=== PATIENT | female | born 1970 | race Caucasian/White ===

== ENCOUNTER 2020-10-03 10:07 | Day surgery (SDC) | payer OTHER ==
[2020-10-03] MEDS: Lactated Ringers 1,000 ML IV SCH (07:50)
--- NOTE | 2020-10-03 07:51 | HP ---
HISTORY OF PRESENT ILLNESS: This is a patient who presents for colonoscopy for screening. She denies any upper GI symptoms. She has had occasional diarrhea with certain foods, has occasional lower abdominal cramps prior to a bowel movement but this is very minimal and she states not significant. She has no significant abdominal pain. No significant lower GI symptoms, no bleeding, no fever, no chills, no chest pain, no shortness of breath. She did have a maternal grandfather who had colon cancer. Her mother had uterine cancer and she also has heart disease and diabetes in her family. She also has an extended family history on her mom's side with breast cancer and cervical cancer and these were an aunt. PAST MEDICAL/SURGICAL HISTORY: Includes migraines, hyperlipidemia, tubal ligation, uterine ablation, tonsillectomy. MEDICATIONS: Atorvastatin, venlafaxine, propranolol, Rizatriptan, promethazine. ALLERGIES: SULFA. SOCIAL HISTORY: No alcohol use. Positive tobacco use. PHYSICAL EXAMINATION: GENERAL: No acute distress. CVS: Regular rate and rhythm. PULMONARY: Nonlabored. ABDOMEN: Soft, nontender, nondistended. EXTREMITIES: Normal. LAB DATA AND TESTS: EKG and chest x-ray all have been reviewed preoperatively and are all satisfactory for proceeding with colonoscopy. DIAGNOSIS: Due for screening colonoscopy. PLAN: Colonoscopy at [facility] per patient request. Due to her family history in her extended family members with cancer, I did also refer her to a genetic counselor for evaluation there.
[~2020-10-03 10:07] MED LIST: Lactated Ringers 1,000 ML IV ONE
[2020-10-03] MEDS ORDERED: Lactated Ringers 1,000 ML IV ONE ×2 (10:15→12:18)
[2020-10-03 10:30] VITALS: O2SAT 100
[2020-10-03] MEDS ORDERED: DIPRIVAN 200 MG/20 ML IV ONE ×3 (10:56→12:31)
[2020-10-03] MEDS ORDERED: Versed 2 MG/2 ML Injection ONE (11:49)
[2020-10-03 13:41] VITALS: BP 134/78; PULSE 77
--- NOTE | 2020-10-05 09:31 | OP ---
PROCEDURE DATE/TIME: 10/03/2020 1152 PREOPERATIVE DIAGNOSIS: Screening. POSTOPERATIVE DIAGNOSIS: Benign appearing anal tag, mild hemorrhoidal disease and colon polyps. PROCEDURE: Colonoscopy with hot snare splenic flexure, descending colon polyp and hot forceps polypectomy sigmoid colon polyp. PROCEDURE PERFORMED BY: Saritha Young M.D. COMPLICATIONS: None. ESTIMATED BLOOD LOSS: Minimal. ANESTHESIA: MAC. SPECIMENS: 1) Splenic flexure colon polyp.2) Descending colon polyp. 3) Sigmoid colon polyp. HISTORY: This is a 49 year-old female who presents for screening colonoscopy. Risks, benefits, alternatives, H&P and consent were all reviewed with her and confirmed. She does also have a family history of colon cancer as well as other cancers in her family and she was also referred for genetic testing as well. The patient was seen preoperatively. All remaining questions answered, everything verified. DESCRIPTION OF PROCEDURE: She was then laid in left lateral decubitus position. A complete time out was performed. First a rectal exam was done and an inspection. She does have benign appearing anal tag. I do not see any concerning mass here. She does also have mild internal and external hemorrhoidal disease. The scope was then inserted. We gently advanced this to the level of the cecum. The appendiceal orifice and the ileocecal valve were visualized. The immediate terminal ileum looked normal. We then carefully withdrew the scope taking a circumferential view. Her prep was satisfactory for evaluation of polyps. I found three polyps these measured approximately 5 to 7 mm in size. The larger of the lesions were in the splenic flexure and the descending colon. These were taken in entirety with a hot snare. These were semi-pedunculated and appeared to be benign on gross visualization. They were removed in entirety. The sites were hemostatic after removal. There was another polyp approximately 5 mm semi-pedunculated at the angle of the sigmoid colon and this was removed with hot forceps. I was not able to remove this with a hot snare due to the angulation here. With two bites of the hot forceps we were able to remove the polyp in entirety. No polyp tissue remaining. The site looked hemostatic and then the scope was able to be completely removed. There were no other findings in the rectum other than the hemorrhoid tissue as previously dictated. The patient tolerated the procedure very well. There were no immediate complications. He is going to follow up with me as an outpatient and we will plan for another colonoscopy in three years. I will also plan to do a rectal exam on her in six months to follow her anal tag and hemorrhoid disease.
== END 2020-10-03 13:42 | disposition home or self-care (01) ==
LOC: SDC 10:07
PROVIDERS: ATTEND Surgery
DX: Z12.11 Encounter for screening for malignant neoplasm of colon (principal); Z80.0 Family history of malignant neoplasm of digestive organs; Z79.899 Other long term (current) drug therapy; K64.4 Residual hemorrhoidal skin tags; K64.8 Other hemorrhoids; D12.4 Benign neoplasm of descending colon; D12.5 Benign neoplasm of sigmoid colon; D12.3 Benign neoplasm of transverse colon
CPT/HCPCS: J2250; J2704

== ENCOUNTER 2022-09-17 10:49 | Emergency (ER) | payer OTHER ==
[2022-09-17] MEDS ORDERED: Zofran 4 MG/2 ML VIAL IV ONE ×2 (11:27→14:24)
[2022-09-17] MEDS ORDERED: MORPHINE SULFATE 4 MG INJ IV ONE (11:27)
[2022-09-17] MEDS ORDERED: MORPHINE SULFATE 4 MG INJ ONE (11:27)
[2022-09-17] MEDS ORDERED: Sodium Chloride 0.9% 1000 ML 1,000 ML IV STA (11:27)
[2022-09-17] MEDS ORDERED: Zofran 4 MG/2 ML VIAL ONE ×2 (11:27→14:24)
[2022-09-17] MEDS ORDERED: Sodium Chloride 0.9% 1000 ML 1,000 ML ONE (11:27)
[2022-09-17 11:39] LABS: Absolute Neutrophil Ct (ANC) 6.52 x10^3/uL (1.4-6.9); BASOPHIL % 0.5 % (0.0-0.4); Basophil (Absolute #) 0.06 x10^3/uL (0-0.4); Eosinophil % 1.3 % (0.00-5.0); Eosinophil (Absolute #) 0.15 x10^3/uL (0-0.5); Hematocrit 48.5 % (35-47); Hemoglobin 15.9 g/dL (12.0-16.0); IMMATURE GRAN # 0.03 x10^3u/L (0.00-0.03); IMMATURE GRAN % 0.3 % (0.00-0.4); Lymphocyte (Absolute #) 4.12 x10^3/uL (1.0-4.6); Lymphocytes % 35.7 % (24.0-44.0); Mean Cell Volume 89.8 fL (78-100); Mean Corpuscular Hemoglobin 29.4 pg (26-32); Mean Corpuscular Hgb Concent. 32.8 g/dL (32-36); Mean Platelet Volume 10.1 fL (7.5-11.0); Monocyte (Absolute #) 0.66 x10^3/uL (0.0-1.3); Monocytes % 5.7 % (0.0-12.0); Neutrophil % 56.5 % (36.0-66.0); Platelet Count 315 x10^3/uL (150-450); Red Cell Distribution Width 13.5 % (11.5-14.0); White Blood Count 11.5 x10^3/uL (4.0-10.5)
[2022-09-17 11:48] LABS: Appearance Clear (Clear); Bacteria Few /HPF (None Seen); Bilirubin Negative (Negative); Blood Negative (Negative); Epithelial Cells Few /HPF (None Seen); Glucose, Urine Negative (Negative); Ketones Negative (Negative); Leukocyte Esterase Negative (Negative); Nitrite Negative (Negative); Ph 5.5 (4.6-8.0); Protein,Urine Dip Negative (Negative); RBC 0-2 /HPF (0-5); Specific Gravity 1.015 (1.005-1.030); Urobilinogen 0.2 mg/dL (0.2); WBC 0-2 /HPF (0-5)
[2022-09-17 11:49] LABS: ADD URINE CULTURE? NO (NO)
[2022-09-17 11:52] LABS: ALBUMIN 4.4 g/dL (3.5-5.0); ALKALINE PHOSPHATASE 105 U/L (38-126); ANION GAP 14.6 MEQ/L (5-15); BLOOD UREA NITROGEN 12 mg/dL (7-17); CHLORIDE 100 mmol/L (98-107); Calcium 9.4 mg/dL (8.4-10.2); Carbon Dioxide 25 mmol/L (22-30); EST GLOMERULAR FILTRATION RATE > 60.0 ML/MIN; Glucose 89 mg/dL (74-106); LIPASE 466 U/L (23-300); Potassium 4.3 mmol/L (3.5-5.1); SGOT/AST 24 U/L (14-36); SGPT/ALT 18 U/L (0-35); SODIUM 136 mmol/L (137-145); Total Protein 8.1 g/dL (6.3-8.2)
--- NOTE | 2022-09-17 13:31 | XRAY ---
CLINICAL HISTORY:Right lower quadrant/ flank pain. COMPARISON:None. TECHNIQUES:Contiguous multi-slice CT examinations of the abdomen and pelvis were acquired in the axial plane with coronal and sagittal without intravenous contrast. CTDI2.74. DLP:140.38. FINDINGS: Liver- normal unenhanced liver. The gall bladder is regular in contour and attenuation. No evidence of calculi. The pancreas is normal in shape and contour. Peripancreatic planes appear normal. No evidence of calcification or pancreatic duct dilatation is seen. The spleen is normal in contour and attenuation. Adrenals are normal. Both kidneys are normal in size, shape and attenuation. No calculi / No hydronephrosis. Both ureters are unremarkable. Stomach and bowel loops are normal. The appendix is normal. No periappendiceal fat stranding identified. The urinary bladder is normal. The uterus is anteverted and grossly unremarkable. Rectum and perirectal fat planes are normal. Vascular calcification seen, more obvious in the distal aorta and its bifurcation. Bone window setting shows Normal bones. Multiple variable sized calcified areas are seen in the subcutaneous tissue over the bilateral gluteal muscles (Gluteal injection site granulomas.). A tiny diffusely calcified nodule is seen in the posterior basal segment of the left lower lung lobe measuring 5.2 mm representing benign findinggranuloma. IMPRESSION: 1. No acute intra-abdominal or pelvic pathology is noted as visualized on the non-contrast CT study. 2. Normal kidneys. No obstructing calculus was identified. 3. Normal appendix. Electronically Signed by: Thad Vyas MD. (09/17/2022 12:27:52 [employer])
[2022-09-17 13:42] VITALS: PULSE 84; O2SAT 97
[2022-09-17 14:05] VITALS: BP 139/107
[2022-09-17] MEDS ORDERED: HYDROCODONE-ACETAMIN 10-325 MG PO STA (14:09)
[2022-09-17] MEDS ORDERED: NORCO 5/325 MG PO ONE (14:10)
[2022-09-17] MEDS ORDERED: HYDROCODONE-ACETAMIN 10-325 MG ONE (14:13)
[2022-09-17] MEDS ORDERED: NORCO 5/325 MG ONE (14:13)
--- NOTE | 2022-09-17 14:21 | ERPHSYRPT ---
- History of Present Illness Time Seen by Provider: 09/17/22 10:54 Historian: patient Exam Limitations: no limitations Patient Subjective Stated Complaint: Abdominal pain Triage Nursing Assessment: Patient ambulated back to ED and transferred self to bed. Patient A+O X 3. Patient's skin pink, warm and dry. Patient complains of right sided abdominal/flank pain that started saturday night that keeps getting worse. Patient complains of pain 8/10. Patient complains of nausea, but vomiting or diarrhea. Abdomen soft and round with BS X 4. Physician History: 51 years old female presented in the ER with chief complaint of right flank/right lower quadrant pain moderate to severe, sharp with radiation to the back, aggravated with palpation on its with associated nausea but no vomiting. Denies any diarrhea or constipation. No urinary complaints. No history of kidney stones. Timing/Duration: day(s) (2), gradual onset, worse Activities at Onset: rest Quality: sharpness Abdominal Pain Onset Location: RLQ, flank Pain Radiation: back Severity of Pain-Max: severe Severity of Pain-Current: severe Modifying Factors: Worsens With: movement, palpation Associated Symptoms: back, nausea, No vomiting Previous symptoms: no prior history Allergies/Adverse Reactions: Sulfa (Sulfonamide Antibiotics) Allergy (Verified 09/17/22 11:00) Home Medications: Promethazine HCl 25 mg Amp [Phenergan 25 MG INJ] 25 mg IJ UD PRN 10/31/11 [History] Propranolol HCl 60 mg PO DAILY 09/26/20 [History] Venlafaxine HCl [Venlafaxine HCl ER] 225 mg PO DAILY 09/26/20 [History] Hx Tetanus, Diphtheria Vaccination/Date Given: Yes Hx Influenza Vaccination/Date Given: No Hx Pneumococcal Vaccination/Date Given: No Immunizations Up to Date: Yes Travel Risk - International Travel Have you traveled outside of the country in past 3 weeks: No - Coronavirus Screening Are you exhibiting any of the following symptoms?: No Close contact with a COVID-19 positive Pt in past 14-21 Days: No - Vaccine Status Have you recieved a Covid-19 vaccination: No - Review of Systems Constitutional: No Symptoms Eyes: No Symptoms Ears, Nose, & Throat: No Symptoms Respiratory: No Symptoms Cardiac: No Symptoms Abdominal/Gastrointestinal: Abdominal Pain, Nausea Genitourinary Symptoms: No Symptoms Musculoskeletal: Back Pain Skin: No Symptoms Neurological: No Symptoms Psychological: No Symptoms Endocrine: No Symptoms Hematologic/Lymphatic: No Symptoms Immunological/Allergic: No Symptoms - Past Medical History Pertinent Past Medical History: Yes Neurological History: Migraines ENT History: No Pertinent History Cardiac History: High Cholesterol Respiratory History: Other Endocrine Medical History: Other Musculoskeletal History: Fibromyalgia GI Medical History: No Pertinent History History: No Pertinent History Psycho-Social History: No Pertinent History Female Reproductive Disorders: No Pertinent History Other Medical History: RECENTLY FOUND NODULE ON THYROID AND HAVING SCAN ON THE AND BLOOD WORK WAS ORDERED. RECENTLY DAUGHTER HAD COVID AND PATIENT WAS ILL BUT COVID TEST NEGATIVE X 2. PATIENT IS NOT VACCINATED. - Past Surgical History Past Surgical History: No Neuro Surgical History: No Pertinent History Cardiac: No Pertinent History Respiratory: No Pertinent History Gastrointestinal: No Pertinent History Genitourinary: No Pertinent History Musculoskeletal: No Pertinent History Female Surgical History: Tubal Ligation, Other Other Surgical History: uterine ablation - Social History Smoking Status: Current every day smoker How long have you smoked: 1984 Exposure to second hand smoke: Yes Drug Use: none Patient Lives Alone: No - Nursing Vital Signs Nursing Vital Signs: Initial Vital Signs Temperature 97.9 F 09/17/22 11:02 Pulse Rate 110 H 09/17/22 11:02 Respiratory Rate 18 09/17/22 11:02 Blood Pressure 151/112 09/17/22 11:02 O2 Sat by Pulse Oximetry 100 09/17/22 11:02 Pain Scale Pain Intensity 10 - Physical Exam General Appearance: no apparent distress, alert, anxiety Eye Exam: PERRL/EOMI Ears, Nose, Throat Exam: normal ENT inspection, pharynx normal Neck Exam: normal inspection, non-tender, supple, full range of motion Respiratory Exam: normal breath sounds, lungs clear Cardiovascular Exam: regular rate/rhythm, normal heart sounds Gastrointestinal/Abdomen Exam: soft, normal bowel sounds, tenderness (Right lower quadrant/flank) Back Exam: normal inspection, normal range of motion, No CVA tenderness Extremity Exam: normal inspection, normal range of motion Neurologic Exam: alert, oriented x 3, cooperative Skin Exam: normal color SpO2 Interpretation: normal SpO2: 97 O2 Delivery: Room Air Ordered Tests: Active Orders 24 hr Category Date Time Status IV Insertion STAT Care 09/17/22 11:27 Active NPO (ED) STAT Care 09/17/22 11:27 Active ABDOMEN AND PELVIS W/0 CONTRAS [CT] Stat Exams 09/17/22 12:13 Completed CBC W DIFF Stat Lab 09/17/22 11:30 Completed CMP Stat Lab 09/17/22 11:30 Completed LIPASE Stat Lab 09/17/22 11:30 Completed Lactic Acid Stat Lab 09/17/22 11:36 Completed UA W/RFX UR CULTURE Stat Lab 09/17/22 11:31 Completed Medication Summary Discontinued Medications Generic Name Dose Route Start Last Admin Trade Name Julianne PRN Reason Stop Dose Admin Hydrocodone Bitart/Acetaminophen 1 tablet 09/17/22 14:09 09/17/22 14:14 Hydrocodone/Acetamin 10-325 Mg Tablet PO 09/17/22 14:10 1 tablet ONCE STA Administration Hydrocodone Bitart/Acetaminophen 2 tab 09/17/22 14:10 09/17/22 14:14 Hydrocodone/Apap 5/325 1 Tab Tablet PO 09/17/22 14:11 2 tab SENT HOME W/ PATIENT ONE Administration Hydrocodone Bitart/Acetaminophen Confirm 09/17/22 14:13 Hydrocodone/Apap 5/325 1 Tab Tablet Administered 09/17/22 14:14 Dose 2 tab .ROUTE .STK-MED ONE Hydrocodone Bitart/Acetaminophen Confirm 09/17/22 14:13 Hydrocodone/Acetamin 10-325 Mg Tablet Administered 09/17/22 14:14 Dose 1 tablet .ROUTE .STK-MED ONE Sodium Chloride 1,000 mls @ 999 mls/hr 09/17/22 11:27 09/17/22 12:45 Sodium Chloride 0.9% 1000 Ml IV 09/17/22 12:27 Infused .Q1H1M STA Infusion Sodium Chloride Confirm 09/17/22 11:27 Sodium Chloride 0.9% 1000 Ml Administered 09/17/22 11:28 Dose 1,000 mls @ ud .ROUTE .STK-MED ONE Morphine Sulfate 4 mg 09/17/22 11:27 09/17/22 11:35 Morphine Sulfate 4 Mg/Ml Injection IV 09/17/22 11:28 4 mg STAT ONE Administration Morphine Sulfate Confirm 09/17/22 11:27 Morphine Sulfate 4 Mg/Ml Injection Administered 09/17/22 11:28 Dose 4 mg .ROUTE .STK-MED ONE Ondansetron HCl 4 mg 09/17/22 11:27 09/17/22 11:34 Ondansetron Hcl 4 Mg/2 Ml Vial IV 09/17/22 11:28 4 mg STAT ONE Administration Ondansetron HCl Confirm 09/17/22 11:27 Ondansetron Hcl 4 Mg/2 Ml Vial Administered 09/17/22 11:28 Dose 4 mg .ROUTE .K-MED ONE Lab/Rad Data: Laboratory Result Diagrams 09/17/22 11:30 09/17/22 11:30 Laboratory Results 09/17/22 09/17/22 09/17/22 Range/Units 11:36 11:31 11:30 WBC (4.0-10.5) x10^3/uL RBC (4.1-5.4) x10^6/uL Hgb (12.0-16.0) g/dL Hct (35-47) % MCV (78-100) fL MCH (26-32) pg MCHC (32-36) g/dL RDW (11.5-14.0) % Plt Count (150-450) x10^3/uL MPV (7.5-11.0) fL Gran % (36.0-66.0) % Immature Gran % (Auto) (0.00-0.4) % Nucleat RBC Rel Count (0.00-0.1) % Eos # (Auto) (0-0.5) x10^3/uL Immature Gran # (Auto) (0.00-0.03) x10^3u/L Absolute Lymphs (auto) (1.0-4.6) x10^3/uL Absolute Monos (auto) (0.0-1.3) x10^3/uL Absolute Nucleated RBC (0.00-0.01) x10^3u/L Lymphocytes % (24.0-44.0) % Monocytes % (0.0-12.0) % Eosinophils % (0.00-5.0) % Basophils % (0.0-0.4) % Absolute Granulocytes (1.4-6.9) x10^3/uL Basophils # (0-0.4) x10^3/uL Sodium 136 L (137-145) mmol/L Potassium 4.3 (3.5-5.1) mmol/L Chloride 100 (98-107) mmol/L Carbon Dioxide 25 (22-30) mmol/L Anion Gap 14.6 (5-15) MEQ/L BUN 12 (7-17) mg/dL Creatinine 0.60 (0.52-1.04) mg/dL Estimated GFR > 60.0 ML/MIN Glucose 89 (74-106) mg/dL Lactic Acid 1.8 (0.4-2.0) Calcium 9.4 (8.4-10.2) mg/dL Total Bilirubin 0.40 (0.2-1.3) mg/dL AST 24 (14-36) U/L ALT 18 (0-35) U/L Alkaline Phosphatase 105 (38-126) U/L Serum Total Protein 8.1 (6.3-8.2) g/dL Albumin 4.4 (3.5-5.0) g/dL Lipase 466 H (23-300) U/L Urine Color Yellow (Yellow) Urine Appearance Clear (Clear) Urine pH 5.5 (4.6-8.0) Ur Specific [place] 1.015 (1.005-1.030) Urine Protein Negative (Negative) Urine Glucose (UA) Negative (Negative) mg/dL Urine Ketones Negative (Negative) Urine Blood Negative (Negative) Urine Nitrite Negative (Negative) Urine Bilirubin Negative (Negative) Urine Urobilinogen 0.2 (0.2) mg/dL Ur Leukocyte Esterase Negative (Negative) U Hyaline Cast (Auto) 3-5 A (0-2) /LPF Urine Microscopic RBC 0-2 (0-5) /HPF Urine Microscopic WBC 0-2 (0-5) /HPF Ur Epithelial Cells Few (None Seen) /HPF Urine Bacteria Few A (None Seen) /HPF Urine Culture Reflexed NO (NO) 09/17/22 Range/Units 11:30 WBC 11.5 H (4.0-10.5) x10^3/uL RBC 5.40 (4.1-5.4) x10^6/uL Hgb 15.9 (12.0-16.0) g/dL Hct 48.5 H (35-47) % MCV 89.8 (78-100) fL MCH 29.4 (26-32) pg MCHC 32.8 (32-36) g/dL RDW 13.5 (11.5-14.0) % Plt Count 315 (150-450) x10^3/uL MPV 10.1 (7.5-11.0) fL Gran % 56.5 (36.0-66.0) % Immature Gran % (Auto) 0.3 (0.00-0.4) % Nucleat RBC Rel Count 0.0 (0.00-0.1) % Eos # (Auto) 0.15 (0-0.5) x10^3/uL Immature Gran # (Auto) 0.03 (0.00-0.03) x10^3u/L Absolute Lymphs (auto) 4.12 (1.0-4.6) x10^3/uL Absolute Monos (auto) 0.66 (0.0-1.3) x10^3/uL Absolute Nucleated RBC 0.00 (0.00-0.01) x10^3u/L Lymphocytes % 35.7 (24.0-44.0) % Monocytes % 5.7 (0.0-12.0) % Eosinophils % 1.3 (0.00-5.0) % Basophils % 0.5 (0.0-0.4) % Absolute Granulocytes 6.52 (1.4-6.9) x10^3/uL Basophils # 0.06 (0-0.4) x10^3/uL Sodium (137-145) mmol/L Potassium (3.5-5.1) mmol/L Chloride (98-107) mmol/L Carbon Dioxide (22-30) mmol/L Anion Gap (5-15) MEQ/L BUN (7-17) mg/dL Creatinine (0.52-1.04) mg/dL Estimated GFR ML/MIN Glucose (74-106) mg/dL Lactic Acid (0.4-2.0) Calcium (8.4-10.2) mg/dL Total Bilirubin (0.2-1.3) mg/dL AST (14-36) U/L ALT (0-35) U/L Alkaline Phosphatase (38-126) U/L Serum Total Protein (6.3-8.2) g/dL Albumin (3.5-5.0) g/dL Lipase (23-300) U/L Urine Color (Yellow) Urine Appearance (Clear) Urine pH (4.6-8.0) Ur Specific [place] (1.005-1.030) Urine Protein (Negative) Urine Glucose (UA) (Negative) mg/dL Urine Ketones (Negative) Urine Blood (Negative) Urine Nitrite (Negative) Urine Bilirubin (Negative) Urine Urobilinogen (0.2) mg/dL Ur Leukocyte Esterase (Negative) U Hyaline Cast (Auto) (0-2) /LPF Urine Microscopic RBC (0-5) /HPF Urine Microscopic WBC (0-5) /HPF Ur Epithelial Cells (None Seen) /HPF Urine Bacteria (None Seen) /HPF Urine Culture Reflexed (NO) - Progress Progress: improved, pain not gone completely, re-examined Progress Note: 09/17/22 14:19 51 years old female presented in the ER with chief complaint of right flank/right lower quadrant pain moderate to severe, sharp with radiation to the back, aggravated with palpation on its with associated nausea but no vomiting. Denies any diarrhea or constipation. No urinary complaints. No history of kidney stones. Is given symptomatic treatment for pain along with fluids. Acute abdomen work- up is done with normal white count, fairly unremarkable chemistries except for mildly elevated lipase 466 but patient is not tender in the epigastric area. No definitive UTI. CT abdomen pelvis without contrast is negative for any acute abdominal pelvic findings. Do not know the exact cause of her pain could be pain radiation from the back. Has negative neuro exam in lower extremities and no signs of cauda equina symptoms. She is feeling much better on reevaluation but pain is not completely resolved. Questionable element of constipation as well. Recommended symptomatic care at home and outpatient follow-up. Discussed signs symptoms of worsening needing return to ER which patient seems understanding. Stable for discharge. 09/17/22 14:20 Counseled pt/family regarding: lab results, diagnosis, need for follow-up, rad results Medical Desision Making - Diagnostic Testing Diagnostic test were ordered, analyzed, and reviewed by me: Yes Radiological Interpretation: Reviewed by me, Teleradiologist Report - Risk of complications The pt has a mod risk of morbidity or mortality based on: Need for prescription drug management - Departure Departure Disposition: Home Clinical Impression: Right sided abdominal pain Condition: Stable Critical Care Time: No Referrals: JANESSA FAM [Primary Care Provider] - Follow up with PCP 1 day Instructions: Severe Abdominal Pain, Adult (DC) Additional Instructions: Take Tylenol/ibuprofen as needed for pain Follow-up with your primary care for reevaluation Return to ER for intractable abdominal pain/vomiting/fever chills etc. Prescriptions: Ibuprofen 600 mg PO Q6HPRN PRN 10 Days #20 tablet PRN Reason: Pain
== END 2022-09-17 14:53 | disposition home or self-care (01) ==
LOC: ED 10:49
DX: R10.31 Right lower quadrant pain (principal); R10.11 Right upper quadrant pain; R11.0 Nausea; E78.5 Hyperlipidemia, unspecified; Z79.899 Other long term (current) drug therapy; Z28.310 Unvaccinated for COVID-19; Z72.0 Tobacco use
CPT/HCPCS: 36000; 36415; 74176; 80053; 81001; 83605; 83690; 85025; 96374; 96375; 96376; 99284; J2270; J2405; A9270-GY